=== PATIENT | female | born 1955 | race Caucasian/White ===

== ENCOUNTER 2017-01-07 12:11 | Emergency (ER) | payer OTHER ==
[2017-01-07 12:41] LABS: BASOPHILS 0.5 % (0.0-2.0); EOSINOPHILS 0.6 % (0.0-6.0); EOSINOPHILS# 0.1 X 10^3uL (0.0-0.4); HEMATOCRIT 45.7 % (36.0-48.0); HEMOGLOBIN 16.1 g/dL (12.0-16.0); LYMPHOCYTES 37.8 % (20.0-40.0); LYMPHOCYTES# 3.5 X 10^3uL (0.8-3.8); MEAN CELL VOLUME 86.7 fL (80.0-100.0); MEAN CORPUS. HGB CONCENTRATION 35.2 g/dL (32.0-36.0); MEAN CORPUSCULAR HEMOGLOBIN 30.5 pg (29.0-35.0); MEAN PLATELET VOLUME 8.7 fL (7.4-10.4); MONOCYTES 5.8 % (2.0-10.0); MONOCYTES# 0.5 X 10^3uL (0.2-1.0); NEUTROPHILS 55.3 % (54.0-75.0); NEUTROPHILS# 5.3 X 10^3uL (2.6-6.7); PLATELET COUNT 267 X 10^3uL (130-440); RED BLOOD COUNT 5.27 X 10^6uL (4.20-6.10); RED CELL DISTRIBUTION WIDTH 13.3 % (11.5-14.5); WHITE BLOOD COUNT 9.4 X 10^3uL (3.9-10.7)
[2017-01-07 12:53] LABS: ALBUMIN 4.8 g/dL (3.5-5.0); ALKALINE PHOSPHATASE 91 U/L (38-126); ALT 44 U/L (9-52); AST 29 U/L (14-36); BILIRUBIN, DIRECT 0.2 mg/dL (0.0-0.4); BILIRUBIN, TOTAL 0.9 mg/dL (0.2-1.3); BLOOD UREA NITROGEN 16 mg/dL (7-17); CALCIUM 9.9 mg/dL (8.4-10.2); CHLORIDE 103 mmol/L (98-107); CREATININE 0.9 mg/dL (0.5-1.0); EST GLOMERULAR FILTRATION RATE > 60 mL/min; GLUCOSE 102 mg/dL (70-100); LIPASE 54 U/L (23-300); POTASSIUM 3.6 mmol/L (3.5-5.1); SODIUM 138 mmol/L (137-145); TOTAL PROTEIN 8.1 g/dL (6.3-8.2)
[2017-01-07] MEDS ORDERED: LIDOCAINE VISCOUS 2% 15 ML UDC ONE (13:00)
[2017-01-07] MEDS ORDERED: MAG-AL PLUS XS SUSP 30 ML UDC ONE (13:00)
[2017-01-07 13:08] LABS: TROPONIN I < 0.012 ng/mL (0.00-0.034)
--- NOTE | 2017-01-07 14:07 | ER NURSING DOCUMENTATION ---
Nurse's Notes [facility] Name:Celine Cintron Age:61 yrs Sex:Female :1955 Arrival Date:01/07/2017 Time:12:11 BedTrauma-C Private MD:Oseas Ladd Diagnosis:Abdominal Pain, Epigastric Presentation: 01/07 12:10 Presenting complaint: Patient states: pt started having epigastric pain and SOB last st night that has not resolved. Transition of care: Home. AIR CAT ACTIVATION no. 12:10 Method Of Arrival: Private Vehicle st 12:23 Acuity: [place] 2 st 12:24 Notified ED Physician of Kevan Diego notified. st Triage Assessment: 12:27 General: Appears uncomfortable, Behavior is anxious, cooperative. Pain: Complains of st pain in epigastric area Pain radiates to back Pain currently is 3 out of 10 on a pain scale. Pain began last night Aggravated by none. Neuro: No deficits noted. Cardiovascular: Capillary refill Heart tones present Reports lightheadedness, shortness of breath Rhythm is sinus rhythm. Respiratory: Airway is patent Respiratory effort is even, unlabored, Respiratory pattern is regular, symmetrical, Breath sounds are clear bilaterally. Reports shortness of breath Denies cough. GI: Abdomen is non- distended Abd is soft X 4 quads Abdomen is tender to palpation in right upper quadrant. Historical: - Allergies: No known drug Allergies; - Home Meds: 1. None - PMHx: None; - PSHx: Cholecysectomy; Tonsillectomy; ; - Tetanus: < 10 years. - Ebola Screening: : Patient denies exposure to infectious person. Patient denies travel to an Ebola-affected area in the 21 days before illness onset. . - Social history: Smoking status: Patient states was never smoker of tobacco. Patient/guardian denies using alcohol, marijuana. Screenin:30 Infectious Disease Risk None. Abuse screen: Denies threats or abuse. Denies injuries st from another. Nutritional screening: No deficits noted. Assessment: 13:12 General: pt states her pain is better but is unable to give a number. . st 13:30 General: pt states she has minor discomfort and dizziness now. . st Vital Signs: 12:17 Pulse 88 MON; Resp 17; Pulse Ox 98% on R/A; st 12:22 BP 130 / 86 (auto/); st 12:50 BP 128 / 82; Pulse 77; Resp 18; Pulse Ox 97% on R/A; st 13:30 BP 117 / 81; Pulse 78; Resp 19; Pulse Ox 93% ; st 14:05 BP 117 / 81; Pulse 78; Resp 19; Pulse Ox 93% on R/A; tg ED Course: 12:13 Patient arrived in ED. ama 12:13 Oseas Ladd MD is Private Physician. ama 12:16 EKG done. (by ED staff). Reviewed by Kurt Mathur MD. tg 12:16 EKG done per protocol. st 12:23 Venessa Khanna, RN is Primary Nurse. st 12:[address] 12:25 Inserted peripheral IV: [address] 12:30 Valuables Remains with patient Patient has correct armband on for positive st identification. Placed in gown. Bed in low position. Call light in reach. Side rails up X 1. youth nutritional monitor on. Pulse ox on. NIBP on. Warm blanket given. 12:35 Kurt Mathur MD is Attending Physician. hung 13:48 Oseas Ladd MD is Referral Physician. hung Administered Medications: 13:00 Drug: GI Cocktail w/o Donnatol - (Maalox Suspension 30 ml, Lidocaine Liquid 2 % 15 ml); st Route: PO; 14:06 Follow up: Response: Pain is decreased tg Outcome: 13:53 Discharge ordered by . hung 14:05 Discharged to home ambulatory, with family. tg 14:05 Condition: stable 14:05 Discharge Assessment: Patient awake, alert and oriented x 3. No cognitive and/or functional deficits noted. Patient verbalized understanding of disposition instructions. 14:05 Instructed on discharge instructions, follow up and referral plans. medication usage. 14:05 IV D/Teja 14:06 Patient left the ED. tg Signatures: Jr Seaman RN RN tg Venessa Khanna, Kurt Yu RN, MD MD jm Averdick, Andrew, Reg Reg ama
--- NOTE | 2017-01-07 14:07 | ER PHYSICIAN DOCUMENTATION ---
Physician Documentation [facility] Name:Celine Cintron Age:61 yrs Sex:Female :1955 Arrival Date:01/07/2017 Time:12:11 BedTrauma-C Private MD:Oseas Ladd ED, John Disposition: 01/07/17 13:53 Discharged to Home/Self Care. Impression: Abdominal Pain, Epigastric. - Condition is Good. - Discharge Instructions: ABDOMINAL PAIN, Unknown Cause, (Female), GASTRITIS (Adult). - Medical Reconciliation form form. - Follow up: Oseas Ladd MD; When: 01/13 at 4:30pm; Reason: Recheck today's complaints. - Problem is new. - Symptoms have improved. - Notes: Try famotidine twice a day for the next week. HPI: 01/07 13:00 This 61 yrs old Female presents to ER via Private Vehicle with complaints of jm Chest Pain, Shortness Of Breath, Dizziness. 13:00 The patient presents with abdominal pain in the epigastric area. jm 13:00 Onset: The symptoms/episode began/occurred gradually, 5 hour(s) ago. The symptoms do jm not radiate. Associated signs and symptoms: Pertinent positives: dizziness and mild SOB. . The symptoms are described as sharp. Modifying factors: the symptoms are aggravated by movement, pressure. Severity of pain: in the emergency department the pain has improved markedly. This patient does not have any risk factors related to abdominal pain. The patient has not experienced similar symptoms in the past. The patient has not recently seen a physician. Pt w epigastric pain since last night/this AM. Worse w movement . . Historical: - Allergies: No known drug Allergies; - Home Meds: 1. None - PMHx: None; - PSHx: Cholecysectomy; Tonsillectomy; ; - Tetanus: < 10 years. - Ebola Screening: : Patient denies exposure to infectious person. Patient denies travel to an Ebola-affected area in the 21 days before illness onset. . - Social history: Smoking status: Patient states was never smoker of tobacco. Patient/guardian denies using alcohol, marijuana. ROS: 13:00 Constitutional: Negative for fever, malaise. jm 13:00 ENT: Negative for sinus congestion, sinus pain, sore throat. 13:00 Cardiovascular: Negative for chest pain. 13:00 Respiratory: Positive for shortness of breath. 13:00 Abdomen/GI: Positive for abdominal pain, Negative for 13:00 MS/extremity: Negative for swelling, tenderness. 13:00 Skin: Negative for rash, swelling. 13:00 Neuro: Positive for dizziness, Negative for headache. 13:00 Psych: Negative for drug dependence, alcohol dependence. 13:00 All other systems are negative. Exam: 13:00 Constitutional: The patient appears alert, awake, comfortable. 13:00 Eyes: Periorbital structures: appear normal, Conjunctiva: normal. 13:00 ENT: Mouth: is normal, Voice: is normal. 13:00 Chest/axilla: Inspection: normal, Palpation: tenderness, that is mild, of the xyphoid area. 13:00 Cardiovascular: Rate: normal, Rhythm: regular, Pulses: no pulse deficits are appreciated. 13:00 Respiratory: Respirations: normal, Breath sounds: are normal. 13:00 Abdomen/GI: Bowel sounds: normal, Palpation: mild abdominal tenderness, in the epigastric area. 13:00 Back: pain, is absent, CVA tenderness, is absent. 13:00 : CVA tenderness, is absent, Bladder: is normal. 13:00 Musculoskeletal/extremity: DVT Exam: No signs of deep vein thrombosis. Calves: are non-tender, have equal circumference. 13:00 Skin: Appearance: Color: pink, Temperature: normal temperature. 13:00 Neuro: Mentation: is normal, Memory: is normal. 13:00 Psych: Behavior/mood is pleasant, cooperative, Affect is calm. Vital Signs: 12:17 Pulse 88 MON; Resp 17; Pulse Ox 98% on R/A; st 12:22 BP 130 / 86 (auto/); st 12:50 BP 128 / 82; Pulse 77; Resp 18; Pulse Ox 97% on R/A; st 13:30 BP 117 / 81; Pulse 78; Resp 19; Pulse Ox 93% ; st 14:05 BP 117 / 81; Pulse 78; Resp 19; Pulse Ox 93% on R/A; tg MDM: 12:35 Patient medically screened. 17:52 Differential diagnosis: bowel obstruction, gastritis, non-specific abd pain, pancreatitis, Peptic Ulcer Disease. Data reviewed: vital signs, nurses notes, old medical records, lab test result(s), EKG, radiologic studies, and as a result, I will discharge patient. Test interpretation: by ED physician or midlevel provider: plain radiologic studies, ECG. Counseling: I had a detailed discussion with the patient and/or guardian regarding: the historical points, exam findings, and any diagnostic results supporting the discharge/admit diagnosis, lab results, radiology results, the need for outpatient follow up, with the patient's primary care provider. ECG:. Medication response: The patient's symptoms have improved, Physician consultation: Oseas Ladd MD regarding outpatient follow-up, next week, and will see patient next week. ED course: VSS and labs normal. Pt w mild relief from GI cocktail. Pt's cardiac w/u has been normal. I feel comfortable sending her home w instructions to take Pepcid BID and ws able to get appointment w Dr. Pate next week. . 01/07 12:56 Order name: CBC AUTO DIF, MDIF/RMOR IF IND; Complete Time: 13:11 EDNV 01/07 12:59 Order name: BASIC METABOLIC PANEL; Complete Time: 13:11 EDNV 01/07 12:59 Order name: HEPATIC PANEL; Complete Time: 13:11 EDNV 01/07 12:59 Order name: LIPASE; Complete Time: 13:11 EDNV 01/07 13:08 Order name: TROPONIN I; Complete Time: 13:11 [facility] 01/07 12:32 Order name: Cardiac Monitoring - Continuous; Complete Time: 12:32 st 01/07 12:32 Order name: Pulse Ox Continuous; Complete Time: 12:32 st 01/07 12:34 Order name: EKG - 12 Lead; Complete Time: 12:34 st 01/07 12:42 Order name: Iv Saline Lock; Complete Time: 12:56 EC:52 Rhythm is regular. QRS [place] is Normal. MT interval is normal. QRS interval is normal. QT interval is normal. No Q waves. T waves are Normal. No ST changes noted. Dispensed Medications: 13:00 Drug: GI Cocktail w/o Donnatol - (Maalox Suspension 30 ml, Lidocaine Liquid 2 % 15 ml); st Route: PO; 14:06 Follow up: Response: Pain is decreased tg Signatures: Jr Seaman RN RN Venessa Mazariegos, RN RN Kurt Waddell MD MD jm
== END 2017-01-07 14:06 | disposition home or self-care (01) ==
LOC: ER 12:11
DX: R10.13 Epigastric pain (principal); R06.02 Shortness of breath; R42 Dizziness and giddiness
CPT/HCPCS: 80048; 80076; 83690; 84484; 85025; 93005; 99284